=== PATIENT | male | born 1980 | race Caucasian/White ===

== ENCOUNTER 2023-12-29 23:24 | Emergency (ER) | payer OTHER, SELFPAY ==
[2023-12-29 23:25] VITALS: BP 148/86; PULSE 84; RESP 16; TEMP 36.4; O2SAT 100
[2023-12-30] MEDS: MICONAZOLE NITRATE 2% CREAM 30 GM TUBE 1 APPLIC TOPICAL (02:53)
[2023-12-30] MEDS: DOXYCYCLINE HYCLATE 100 MG TABLET PO (02:53)
--- NOTE | 2023-12-30 03:06 | ED.WOUNDLAC ---
HPI - Wound/Laceration General Chief Complaint: Extremity Injury, Lower Stated Complaint: wounds to arms/legs Time Seen by Provider: 12/30/23 02:15 History of Present Illness HPI narrative: patient has noticed ulcers to his left leg and arm that he states happened after he had burned himself. Also noticed a lesion to his left upper leg. Does use methamphetamine but does not inject. No systemic symptoms. The lesions are very itchy. He does also have swelling to his legs, was diagnosed with lymphedema a while back, he tripped elevated, this has been ongoing for years, he has had a negative CT scan for blood clots as well as a negative DVT ultrasound for blood clots. Related Data Allergies Allergy/AdvReac Type Severity Reaction Status Date / Time No Known Allergies Allergy Unverified 05/09/14 11:16 Exam Narrative: EXAMINATION OF ORGAN SYSTEMS/BODY AREAS: Constitutional: Vital signs per nursing GENERAL:[No acute distress, non-toxic appearing.] HEAD: Normal with no signs of head trauma. EYES: EOMI, conjunctiva normal ENT: Hearing grossly intact LUNGS: Nonlabored breathing. HEART: [Regular rate and rhythm] ABD: [Soft], [nontender to palpation] EXT: The swollen legs bilaterally with left slightly more than right which per patient is chronic. Normal range of motion. SKIN: Several ulcers to left upper leg, several ulcers to right upper arm NEURO: [Alert and oriented x 3. No gross focal sensory or strength deficits.] PSYCH: Normal affect Course Vital Signs Vital signs: Vital Signs Temperature 97.5 F L 12/29/23 23:25 Pulse Rate 84 12/29/23 23:25 Respiratory Rate 16 12/29/23 23:25 Blood Pressure 148/86 H 12/29/23 23:25 Pulse Oximetry 100 12/29/23 23:25 Oxygen Delivery Room Air 12/29/23 23:25 Temperature 97.5 F L 12/29/23 23:25 Pulse Rate 74 12/30/23 03:49 Respiratory Rate 16 12/30/23 03:49 Blood Pressure 142/68 H 12/30/23 03:49 Pulse Oximetry 100 12/30/23 03:49 Oxygen Delivery Room Air 12/29/23 23:25 MDM - Wound/Laceration MDM Narrative Medical decision making narrative: patient presents with multiple lesions on his left leg and right arm that are very itchy and slightly tender. Does admit to methamphetamine use but denies injecting it. Aspect possibly wounds/ ulcers from the burn +possible infection, given the itchiness and the ring-like appearance, I suspect possible tinea versus impetigo, with high risk for MRSA, I will put him on doxycycline and clotrimazole. Counseled to stop using meth. He has had the leg swelling for years and has had negative DVT ultrasound and CT for blood clot so I do not feel was necessary to a obtain further workup of that today. He has no systemic symptoms. I do feel he can be discharged with close outpatient follow-up and return precautions. Patient agreeable to this plan. Discharge Plan Discharge Clinical Impression: Skin lesions, Skin infection, Methamphetamine abuse, Lymphedema Patient Disposition: Home, Self-Care Condition: Stable Instructions: Antibiotic Form, Impetigo (ED), Acute Wounds (ED) Additional Instructions: Please take the medications as prescribed and follow up with a PCP. Please come back to the ER if your symptoms worsen here. Please stop using methamphetamines. Prescriptions: New doxycycline hyclate 100 mg capsule 100 mg PO Q12H 7 Days Qty: 14 0RF clotrimazole 1 % cream 1 applic topical BID 28 Days Qty: 45 0RF Follow-up/Referrals: Larry Tomas DO [Physician] - 2 Days PHYSICIAN,MAIL SERVICE COORDINATOR [Primary Care Provider] -
[2023-12-30 03:49] VITALS: BP 142/68; PULSE 74; RESP 16; O2SAT 100
== END 2023-12-30 03:49 | disposition home or self-care (01) ==
LOC: ANHED 12-30 02:48
PROVIDERS: Emergency Provider Emergency Medicine
DX: L98.9 Disorder of the skin and subcutaneous tissue, unspecified (principal); L08.9 Local infection of the skin and subcutaneous tissue, unspecified; F15.10 Other stimulant abuse, uncomplicated; I89.0 Lymphedema, not elsewhere classified
CPT/HCPCS: 99283; A9270

== ENCOUNTER 2024-01-06 23:41 | Inpatient (IN) | payer OTHER, SELFPAY ==
--- NOTE | ~2024-01-06 | XR_ITS ---
AP and lateral views of the right tibia/fibula Clinical History: Infection, evaluate for soft tissue gas Findings: No acute fracture or dislocation is seen. Osseous alignment is anatomic. Joint spaces are p reserved without significant erosive or degenerative change. There is diffuse subcutaneous soft tissu e edema. No soft tissue gas is evident. Impression: Diffuse soft tissue edema could reflect cellulitis. No soft tissue gas evident. No osseous or articular abnormality. Reviewed, dictated and finalized at location . Impression: Diffuse soft tissue edema could reflect cellulitis. No soft tissue gas evident. No osseous or articular abnormality.
--- NOTE | ~2024-01-06 | CT_ITS ---
EXAMINATION: CT tibia/fibula RT w con DATE: 01/07/2024 14:42 INDICATION: Right lower leg cellulitis. TECHNIQUE: Computed tomography (CT) of the right lower limb was performed with 100 mL Omnipaque 350 i ntravenous contrast. Automated exposure control and iterative reconstruction technique were employed. The dose-length product was 1397.43 mGy-cm. COMPARISON: Right tibia and fibula radiographs 01/07/2024 FINDINGS: Alignment is normal. Fracture. There is mild knee joint osteoarthritis. There is mild polya rticular osteoarthritis in the foot. No knee joint effusion. There is widespread subcutaneous edema. IMPRESSION: 1. Widespread subcutaneous edema. No abscess or osteomyelitis. Reviewed, dictated and finalized at location A.
[2024-01-06 23:46] VITALS: BP 131/77; PULSE 100; RESP 20; TEMP 36.9; O2SAT 100
--- NOTE | 2024-01-07 01:17 | ED.EXTPRO ---
HPI - Extremity Problem General Chief complaint: Extremity Problem,Nontraumatic Stated complaint: r leg pain Time Seen by Provider: 01/07/24 01:16 Source: patient Mode of arrival: EMS Limitations: no limitations History of Present Illness HPI Narrative: This is a 43-year-old male who presents to the ED for chief complaint of right lower leg pain patient reports that he was here last week for his left leg diagnosed with impetigo and cellulitis in the context of smoking meth. He states that he does not use any IVs for injection of meth and stopped using meth after antibiotics were prescribed last week. States that he took 1 dose of his clindamycin and stop taking it altogether due to diarrhea. A few days ago his right leg started to hurt more. Reports it is now appearing more swollen, red and warm. Denies any other medical condition or regular medications that he takes. Eyes any other substance use. Related Data Allergies Allergy/AdvReac Type Severity Reaction Status Date / Time No Known Allergies Allergy Unverified 05/09/14 11:16 Review of Systems Review of Systems: All systems as dictated in HPI Exam Narrative: GENERAL: Well-appearing, well-nourished, and in no acute distress. HEAD: Normocephalic, atraumatic. EYES: PERRLA and EOMI. ENT: Nares clear, no rhinorrhea or epistaxis. Mucous membranes moist. Oropharynx without tonsillar hypertrophy exudate or other lesions. NECK: Supple. No adenopathy or masses. CHEST: No respiratory distress. Clear to auscultation. No wheezes rales or rhonchi HEART: Regular rate and rhythm. No murmur heard. Normal peripheral pulses. ABDOMEN: Soft, nontender, nondistended, normal active bowel sounds. MSK: Bilateral lower extremity edema noted. RLE: Right lower extremity with pitting edema up to the level of the knee. Right lower extremity tender to the dorsum of the foot and to the calf. There is significant warmth, redness throughout the right lower extremity. LLE: There is chronic lymphedema appearing edema to the left lower extremity. There are several crusted erythematous raised lesions to the left proximal thigh measuring from mara sized to half dollar size. SKIN: Rash noted to the right extremity lower extremity. No petechia or purpura. No crepitus to the skin. NEURO: Alert and oriented x4. No focal deficits. PSYCH: Normal mood and affect. Course Vital Signs Vital signs: Vital Signs Temperature 98.5 F 01/06/24 23:46 Pulse Rate 100 01/06/24 23:46 Respiratory Rate 20 01/06/24 23:46 Blood Pressure 131/77 01/06/24 23:46 Pulse Oximetry 100 01/06/24 23:46 Oxygen Delivery Room Air 01/06/24 23:46 Temperature 98.5 F 01/06/24 23:46 Pulse Rate 92 01/07/24 03:17 Respiratory Rate 15 01/07/24 03:17 Blood Pressure 122/60 01/07/24 03:17 Pulse Oximetry 100 01/07/24 03:17 Oxygen Delivery Room Air 01/06/24 23:46 MDM - Extremity (Nontraumatic) MDM Narrative Medical decision making narrative: This is a 43-year-old male who presents to the ED with chief complaint of right lower extremity swelling, pain erythema and warmth over the past couple days. Diagnosed with impetigo last week on the left-sided not take his antibiotics. Vitals are normal. Exam remarkable for the above with significant swelling, erythema and warmth of the lower extremity. Induration noted but no crepitus or lesions concerning for nec fasc. Lab work shows elevated white count of 16.1 and CRP of 29.8. CMP are unremarkable. Tib-fib x-ray shows no gas tracking or it bone erosion on preliminary read. Patient was started on fluids, cefepime and vancomycin in the setting of past drug abuse. Discussed the case with Dr. Mohan, who agrees with plan for IV antibiotics and admission to the hospital. Discussed the plan of admission with patient and he is understanding and agreeable. He will be admitted in stable condition. Lab Data 01/07/24 02:12 01/07/24 02:
[2024-01-07 02:18] LABS: Basophils Absolute Auto 0.1 K/mm3 (0.0-0.1); Basophils Percent Auto 0.7 % (0.2-1.2); Eosinophils Absolute Auto 0.3 K/mm3 (0-0.3); Eosinophils Percent Auto 1.6 % (0-4.4); Hematocrit 41.1 % (42.0-52.0); Immature Granulocyte Absolute 0.75 K/mm3 (0.00-0.031); Immature Granulocyte Percent A 4.7 % (0-0.5); Lymphocytes Absolute Auto 1.66 K/mm3 (0.9-3.2); Lymphocytes Percent Auto 10.3 % (18.3-44.2); Mean Corpuscular HGB Conc 34.1 g/dl (32-36); Mean Corpuscular Hemoglobin 30.8 pg (26-34); Mean Corpuscular Volume 90.5 fl (80-100); Mean Platelet Volume 9.3 fl (7.4-10.4); Monocytes Absolute Auto 1.5 K/mm3 (0.1-0.6); Monocytes Percent Auto 9.2 % (2.6-8.5); Neutrophils Absolute Auto 11.9 K/mm3 (1.3-6.7); Neutrophils Percent Auto 73.5 % (45.5-73.1); Platelet Count Result 306 k/mm3 (150-375); Red Blood Count 4.54 M/mm3 (4.6-6.20); Red Cell Distribution Width 13.8 % (11.5-14.5); White Blood Count 16.1 K/mm3 (4.5-10.0)
[2024-01-07] MEDS: SODIUM CHLORIDE 0.9% IV 1,000 ML 999 ML IV CONT ×2 (02:21→13:13)
[2024-01-07] MEDS: MORPHINE SULFATE (*CRX) 4 MG/ML INJ IV PUSH ×3 (02:22→14:53)
[2024-01-07] MEDS: ONDANSETRON INJ 4 MG/2 ML VIAL IV PUSH (02:22)
[2024-01-07] MEDS: CEFEPIME 2 GM/NS 50 ML 2 GM/50 ML BAG IVPB ×2 (02:25→13:47)
[2024-01-07 02:31] LABS: Alanine Aminotransferase 26 U/L (6-50); Albumin Level 3.7 g/dL (3.5-5.1); Alkaline Phosphatase 112 U/L (38-126); Anion Gap 8 mmol/L (4-12); Aspartate Amino Transferase 22 U/L (17-59); Bilirubin,Total 0.8 mg/dL (0.2-1.3); Blood Urea Nitrogen 13 mg/dL (9-20); Carbon Dioxide 30 mmol/L (22-30); Chloride 96 mmol/L (98-107); Estimated CRCL calculation 133 ml/min; Estimated Glomerular Filt Rate > 60; Glucose 107 mg/dL (65-110); Lactic Acid Reflex 1.4 mmol/L (0.7-2.0); Sodium 134 mmol/L (137-145)
[2024-01-07 03:07] LABS: CRP 29.8 mg/dL (<1.0)
[2024-01-07 03:17] VITALS: BP 122/60; PULSE 92; RESP 15; O2SAT 100
[2024-01-07] MEDS: VANCOMYCIN 1,500 MG/NS 500 ML 1,500 MG/500 ML BAG 250 MG IVPB ×2 (03:17→15:42)
[2024-01-07 04:59] VITALS: BMI 30.3
--- NOTE | 2024-01-07 05:03 | ADMGEN ---
This patient, Paul Chapa, was admitted to 3 [facility] Surg Room 320-01. Patient/family oriented to hospital policies and general routines including ID bracelet, bed and alarms, visiting hours, pain management, procedures, bathroom and other care routines, personal items, smoking policy, room service/diet, and visiting hours. Information on how to activate the Rapid Response Team has been discussed. Patient/Family are encouraged to report perceived risks to care and to ask questions if they do not understand what they are told or what they should do.
[2024-01-07 05:09] VITALS: PULSE 96; RESP 18; TEMP 37.3; O2SAT 98; BMI 30.3
[2024-01-07] MEDS: SODIUM CHLORIDE 0.9% IV 1,000 ML 125 ML IV CONT ×2 (05:31→15:42)
--- NOTE | 2024-01-07 08:19 | PM.IMHP ---
H&P: HPI History of Present Illness Date/Time: 01/07/24 08:19 Chief Complaint: Wounds Narrative: Paul Chapa is a 43 year old man, hx obesity with 150 pound weight loss in the last 2 years, chronic lymphedema to left leg, 10 years of methamphetamine use, who presented to the ED for wounds. Denies injecting. Admitted for right leg cellulitis. Also has lesions to his left arm and leg, lesions itchy, reports present since about 12/25. He presented to the ED 12/29 and had left leg swelling at that time, as well as the lesions to his right upper leg and arm. Lesions are not painful but are itchy. He reports he previously weighed about 400 pounds but has lost about 150 pounds in the last 2 years since his divorce. Smokes methamphetamines, usually every other day but intends to quit. He has had chronic lymphedema to his left leg, generally resolved with elevation. He has stable living situation but notes that he stays at a workshop, so may not be a permanent solution. No concern for bug bites Noticed ulcers to his left leg and arm, lesions are itchy that he reports have been present for at least a week. Reports swelling to left leg improved with doxycycline, but was only able to take it for a day or two because he couldn't get to the medication due to pain/swelling that subsequently developed in his right leg. 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 Currently sexually active with 2 partners. No reported fevers at home. No dysuria or genital lesions. In the ER he was afebrile, tachycardic (98.5, HR 100, RR 20, BP 131/77, 100%RA). Subsequent low grad temp, 99.2. Labs showed a WBC 16.1, H&H 14/41.1, Plt 306. CRP 29.8. Creat 0.8. LFT?s normal, AST 22, ALT 26, Alk phos 112.? Blood cultures were sent. Tib/Fib x-ray no acute fracture. He reports redness and swelling to his righ leg is increasing overnight. Started on doxy and clotrimazole for ringlike appearance of wound, concern for fungal infection vs impetigo, risk for MRSA. Subsequently started on Cefepime and IV Vancomycin Review of Systems Review of Systems: No fevers, chills, nausea, vomiting, or diarrhea PMFSH Family History Family History Grandparent Breast cancer Grandparent Diabetes mellitus Father Lung cancer Myocardial infarct Social History Social History Smoking packs per day: 1 Smoking cigarettes per day: 20.0 Years smoked: 25 Smoking pack-years: 25.00 Smoking status: Current every day smoker Tobacco type: cigarettes Alcohol intake: never Substance use: current Substance use type: methamphetamine Last use: 12/27/2023 Do You Feel Safe in your Home?: Yes Lack of Transportation: YES Lack of Food: Never True Current Housing: I Have Housing Concerned About Future Housing: YES Difficulty Paying Gas/Electric Bills: YES Difficulty Paying for Meds: YES Currently Unemployed: YES Education: High School Diploma/GED Difficulty w/ Childcare or Family Care: No Spiritual care concerns: No Meds Home Medications and Allergies Home Medications Medication Instructions Recorded Confirmed Type No Home Medications 01/07/24 01/07/24 History Allergies Allergy/AdvReac Type Severity Reaction Status Date / Time No Known Allergies Allergy Verified 01/07/24 05:12 Vital Signs Vital Signs - 24 hr 01/06/24 23:46 01/07/24 03:17 01/07/24 05:09 Temperature 98.5 F 99.2 F Pulse Rate 100 92 96 Respiratory Rate 20 15 18 Blood Pressure 131/77 122/60 Pulse Oximetry 100 100 98 Oxygen Delivery Room Air H&P: Results Labs Labs: Short CBC 01/07/24 Range/Units 02:12 WBC 16.1 H (4.5-10.0) K/mm3 Hgb 14.0 (14.0-18.0) g/dL Hct 41.1 L (42.0-52.0) % Plt Count 306 (150-375) k/mm3 BMP 01/07/24 02:12 Sodium 134 L Potassium 4.0 Chloride 96 L Carbon Dioxide 30 BU
[2024-01-07 11:35] LABS: Add Urine Microscopic? NO; Appearance Urine Clear (Clear); Bilirubin Urine Negative (Negative); Blood Urine Negative (Negative); Color Urine Yellow (Yellow); Glucose Urine UA Negative (Negative); Ketones Urine Negative (Negative); Leukocyte Esterase Ur Negative LEU/UL (Negative); Nitrate Urine Negative (Negative); Protein Urine Negative (Negative); Specific Grav Ur 1.015 (1.001-1.035); pH Urine 6.5 (5.0-9.0)
[2024-01-07 11:49] LABS: Barbiturate Screen Urine Negative (Negative); Benzodiazepines Screen Urine Negative (Negative)
[2024-01-07 11:51] LABS: Cannabinoid Screen Urine Negative (Negative); Cocaine Screen Urine Negative (Negative); Methadone Screen Urine Negative (Negative); Opiate Screen Urine Positive (Negative); Phencyclidine Screen Urine Negative (Negative)
[2024-01-07 12:13] LABS: Amphetamine Screen Urine Positive (Negative)
[2024-01-07 12:21] LABS: Basophils Absolute Auto 0.1 K/mm3 (0.0-0.1); Basophils Percent Auto 0.8 % (0.2-1.2); Eosinophils Absolute Auto 0.2 K/mm3 (0-0.3); Eosinophils Percent Auto 1.7 % (0-4.4); Hematocrit 37.7 % (42.0-52.0); Hemoglobin 12.6 g/dL (14.0-18.0); Immature Granulocyte Absolute 0.68 K/mm3 (0.00-0.031); Immature Granulocyte Percent A 4.8 % (0-0.5); Lymphocytes Absolute Auto 1.59 K/mm3 (0.9-3.2); Lymphocytes Percent Auto 11.2 % (18.3-44.2); Mean Corpuscular HGB Conc 33.4 g/dl (32-36); Mean Corpuscular Hemoglobin 30.5 pg (26-34); Mean Corpuscular Volume 91.3 fl (80-100); Mean Platelet Volume 9.1 fl (7.4-10.4); Monocytes Absolute Auto 1.1 K/mm3 (0.1-0.6); Monocytes Percent Auto 7.9 % (2.6-8.5); Neutrophils Absolute Auto 10.5 K/mm3 (1.3-6.7); Neutrophils Percent Auto 73.6 % (45.5-73.1); Platelet Count Result 290 k/mm3 (150-375); Red Blood Count 4.13 M/mm3 (4.6-6.20); Red Cell Distribution Width 13.9 % (11.5-14.5); White Blood Count 14.3 K/mm3 (4.5-10.0)
[2024-01-07 12:32] LABS: Anion Gap 7 mmol/L (4-12); Blood Urea Nitrogen 14 mg/dL (9-20); Calcium 8.3 mg/dL (8.4-10.2); Carbon Dioxide 28 mmol/L (22-30); Chloride 98 mmol/L (98-107); Estimated CRCL calculation 168 ml/min; Estimated Glomerular Filt Rate > 60; Glucose 137 mg/dL (65-110); Lactic Acid Reflex 1.4 mmol/L (0.7-2.0); Sodium 133 mmol/L (137-145)
[2024-01-07 13:05] VITALS: BMI 30.3
[2024-01-07 13:11] LABS: HIV 1/2 Ab P24 Ag Result Negative (Negative)
[2024-01-07 14:00] VITALS: BP 112/62; PULSE 87; RESP 18; TEMP 37; O2SAT 99
--- NOTE | 2024-01-07 14:15 | PC.NURSE ---
pt taken down to CT
[2024-01-07 14:24] LABS: Rapid Plasma Reagin Non-Reactive (NonReactive)
--- NOTE | 2024-01-07 14:45 | PC.NURSE ---
pt returned from CT
[2024-01-07 15:21] LABS: Chlamydia trachomatis NOT DETECTED (NOT DETECTE); Neisseria gonorrhoeae PCR NOT DETECTED (NOT DETECTE)
[2024-01-07] MEDS: SENNA/DOCUSATE SODIUM TABLET 1 TAB PO (17:14)
[2024-01-07] MEDS: MICONAZOLE NITRATE 2% CREAM 30 GM TUBE 1 APPLIC TOPICAL (21:37)
[2024-01-07 22:00] VITALS: BP 126/61; PULSE 93; RESP 18; TEMP 36.9; O2SAT 96
--- NOTE | 2024-01-08 | ECHO_ITS ---
Patient Info Name: Paul Chapa Age: 43 years : 1980 Gender: Male Ht: 78 in Wt: 260 lbs BSA: 2.57 m2 HR: 96 bpm BP: 115 / 70 mmHg Heart Rhythm: Sinus Rhythm Technical Quality: Good Exam Date: 01/08/2024 2:14 PM Exam Location: Echo Lab Patient Status: Inpatient Admit Date: 01/07/2024 Staff Ordering Physician: Pina Echavarria APRN Irish Moss Bleacher: Liya Rivas RDCS Attending Provider: Pina Echavarria APRN Exam Type: CA echo doppler color flow Study Info Indications - evaluate endocarditis Complete two-dimensional, color flow and Doppler transthoracic echocardiogram is performed. Summary 1. Complete two-dimensional, color flow and Doppler transthoracic echocardiogram is performed. 2. Left ventricular systolic function is normal, estimated at 55-60%. 3. The left ventricular diastolic function is normal. 4. Aortic valve appears to be thickened. Cannot rule out endocarditis. If there is a clinical suspicion for endocarditis, transesophageal echocardiogram is recommended. Left Ventricle Left ventricular chamber dimension is normal. Left ventricular systolic function is normal, estimated at 55-60%. There is no increased left ventricular wall thickness. Left ventricular septal wall motion is normal. The left ventricular diastolic function is normal. Right Ventricle Right ventricular chamber dimension is normal. Right ventricular systolic function is normal. Left Atria Left atrial chamber dimension is normal. Right Atria Right atrial chamber dimension is normal. Atrial Septum Intact interatrial septum visualized by color flow imaging. Aortic Valve The aortic valve is probable trileaflet. There is severe aortic valve sclerosis. There is no aortic valve stenosis. There is no aortic valve regurgitation. Pulmonic Valve The pulmonic valve is normal. There is no pulmonic valve stenosis. There is no pulmonic regurgitation. Mitral Valve The mitral valve has normal leaflets. There is no mitral valve stenosis. There is no mitral valve regurgitation. Tricuspid Valve The tricuspid valve leaflets are normal. There is no significant tricuspid valve stenosis. There is no tricuspid valve regurgitation. No pulmonary hypertension, estimated pulmonary arterial systolic pressure is 17 mmHg. Pericardium/Pleural The pericardium appears normal. There is no pericardial effusion. Inferior Vena Cava Normal inferior vena cava with >50% collapse upon inspiration consistent with normal right atrial pressure, 5 mmHg. Aorta The aortic root size at the sinus of Valsalva is normal. The prox ascending aorta size is normal. Left Ventricular Outflow Tract Name Value Normal LVOT 2D LVOT Diameter 2.1 cm LVOT Doppler LVOT Peak Gradient 4 mmHg LVOT Mean Gradient 2 mmHg LVOT VTI 16 cm LVOT VTI/AV VTI Ratio 0.7 LVOT Stroke Volume 56 ml LVOT CO 4.7 l/min LVOT CI 1.8 l/min/m2 Mitral Valve Name
[2024-01-08] MEDS: CEFEPIME 2 GM/NS 50 ML 2 GM/50 ML BAG IVPB (01:15)
[2024-01-08] MEDS: VANCOMYCIN 1,500 MG/NS 500 ML 1,500 MG/500 ML BAG 250 MG IVPB ×2 (03:04→16:20)
[2024-01-08 05:42] VITALS: BP 115/70; PULSE 96; RESP 18; TEMP 36.8; O2SAT 96
[2024-01-08 06:42] LABS: Estimated CRCL calculation 149 ml/min; Estimated Glomerular Filt Rate > 60
--- NOTE | 2024-01-08 08:14 | PM.IMPN ---
Progress Note: A&P Assessment and Plan (1) Cellulitis: Qualifiers: Laterality: right Site of cellulitis: extremity Site of cellulitis of extremity: lower extremity Qualified Code(s): L03.115 - Cellulitis of right lower limb Code(s): L03.90 - Cellulitis, unspecified Status: Acute Assessment and Plan: Right leg cellulitis with significant erythema and edema. Slightly improved overnight. No fevers. Repeating labs this afternoon On admission WBC 16.1, CRP 29.8 --CT right leg generalized edema without abscess --Change Cefepime to Ceftriaxone, continue IV Vanc, follow vanc trough. If has more clear improvement tomorrow could continue linezolid or bactrim --Follow labs: CBC, lactate, BMP --Staph screen for MRSA --01/06 2:12am, blood cultures negative to date, follow final results 01/06 CT Tib/Fib 1. Widespread subcutaneous edema. No abscess or osteomyelitis. (2) Rash: Code(s): R21 - Rash and other nonspecific skin eruption Status: Acute Assessment and Plan: Left leg rash, circular, raised, crusted. He reports they were draining previously and that has resolved so may have had multiple abscess, which is concerning for bacteremia. RPR & HIV were negative --Topical miconazole but less likely fungal --Treatment of cellulitis as noted --Topical chlorhexadine soap to clean wounds --TTE to screen for endocarditis (3) Weight loss: Code(s): R63.4 - Abnormal weight loss Status: Acute Assessment and Plan: Patient reports 150 pound weight loss in the last 2 years. 10 years of methamphetamine use --HIV, RPR, Urine for G/C negative --Methamphetamine use exterminator, contributing to some extent --Creel Selector consult, appreciate recommendations, added ensure Time Spent With Patient Time: 38 minutes Subjective Date/time seen: 01/08/24 08:14 Interval history: Slow improvement to right leg cellulitis, elevated leg overnight. Reports shaking chills prior to ED visit last week but had mostly resolved prior to this admission. Review of Systems Review of Systems: No fevers, chills, nausea, vomiting, or diarrhea Exam Narrative: General - Awake and alert. No acute distress Eyes - PERRLA, EOM intact ENT - No thrush, No erythema Neck - No noticeable or palpable swelling Lymph Nodes - No lymphadenopathy Cardiovascular - RRR no m/r/g, no JVD Lungs: Clear to auscultation, No wheezing, use of accessory muscles, no crackles or wheezes. Skin - Skin warm and dry, no wounds or rashes Abdomen - Normal bowel sounds, abdomen soft and nontender Extremities - Erythema and edema diffusely to right leg below the knee, no cyanosis or clubbing, TTP Round crusted lesions to upper thigh--multiple, also one to left wrist and lower leg, not draining Musculoskeletal - 5/5 strength, normal range of motion, no swollen or erythematous joints. Neurological ? Alert and oriented x 3, CN 2-12 grossly intact. Psych: Normal mood and affect Objective Data Vital Signs Vital Signs: Vital Signs - 24 hr 01/07/24 08:30 01/07/24 14:00 01/07/24 22:00 Temperature 98.6 F 98.5 F Pulse Rate 87 93 Respiratory Rate 18 18 Blood Pressure 112/62 126/61 Pulse Oximetry 99 96 Oxygen Delivery Room Air 01/08/24 05:42 Temperature 98.2 F Pulse Rate 96 Respiratory Rate 18 Blood Pressure 115/70 Pulse Oximetry 96 Oxygen Delivery Intake/Output Intake/Output: Intake & Output 01/05/24 01/06/24 01/07/24 01/08/24 23:59 23:59 23:59 23:59 Intake Total 6100 1100 Output Total 3000 4355 Balance 3100 -3255 Meds/Results Medications: Active Medications Generic Name Dose Route Start Last Admin Trade Name Freq PRN Reason Stop Dose Admin Acetaminophen 650 mg 01/07/24 03:43 Acetaminophen 325 Mg Tablet PO Q4H PRN Mild Pain (1-3) or Fever Hydrocodone Bitart/Acetaminophen 1 tab 01/07/24 03:43 Hydrocodone/Acetaminophen (*Crx) 5-325 Mg Tablet PO Q4H NM
[2024-01-08] MEDS: ENOXAPARIN 40 MG/0.4 ML SYRINGE SUB-Q (08:53)
[2024-01-08] MEDS: NICOTINE (*PBKC) 21 MG PATCH 1 PATCH TRANSDERM (08:55)
[2024-01-08] MEDS: MORPHINE SULFATE (*CRX) 4 MG/ML INJ IV PUSH (09:02)
[2024-01-08] MEDS: cefTRIAXone 2 GM/NS 100 ML 2 GM/100 ML BAG IVPB (12:45)
[2024-01-08] MEDS: SODIUM CHLORIDE 0.9% IV 1,000 ML 125 ML IV CONT (12:45)
[2024-01-08] MEDS: MICONAZOLE NITRATE 2% CREAM 30 GM TUBE 1 APPLIC TOPICAL ×2 (13:56→21:25)
[2024-01-08 14:00] VITALS: BP 122/64; PULSE 83; RESP 20; TEMP 36; O2SAT 97
[2024-01-08] MEDS: polyethylene glycoL 3350 17 GM POWD.PACK PO (14:03)
[2024-01-08] MEDS: CHLORHEXIDINE GLUCONATE 4% SOL 120 ML BTL 1 APPLIC TOPICAL (14:03)
[2024-01-08 14:04] LABS: MRSA (PCR) NOT DETECTED (NOT DETECTE)
[2024-01-08 14:33] LABS: Basophils Absolute Auto 0.1 K/mm3 (0.0-0.1); Eosinophils Absolute Auto 0.4 K/mm3 (0-0.3); Eosinophils Percent Auto 2.7 % (0-4.4); Hematocrit 38.6 % (42.0-52.0); Hemoglobin 13.2 g/dL (14.0-18.0); Immature Granulocyte Absolute 0.79 K/mm3 (0.00-0.031); Immature Granulocyte Percent A 5.6 % (0-0.5); Lymphocytes Absolute Auto 1.69 K/mm3 (0.9-3.2); Mean Corpuscular HGB Conc 34.2 g/dl (32-36); Mean Corpuscular Hemoglobin 30.9 pg (26-34); Mean Corpuscular Volume 90.4 fl (80-100); Monocytes Absolute Auto 0.9 K/mm3 (0.1-0.6); Monocytes Percent Auto 6.2 % (2.6-8.5); Neutrophils Absolute Auto 10.3 K/mm3 (1.3-6.7); Neutrophils Percent Auto 72.5 % (45.5-73.1); Platelet Count Result 323 k/mm3 (150-375); Red Blood Count 4.27 M/mm3 (4.6-6.20); Red Cell Distribution Width 13.5 % (11.5-14.5); White Blood Count 14.1 K/mm3 (4.5-10.0)
[2024-01-08 14:53] LABS: Erythrocyte Sedimentation Rate 133 mm/hr (0-20)
[2024-01-08] MEDS: SENNA/DOCUSATE SODIUM TABLET 1 TAB PO (16:26)
[2024-01-08 20:31] VITALS: BP 119/62; PULSE 92; RESP 20; TEMP 36.6; O2SAT 99
[2024-01-09] MEDS: SODIUM CHLORIDE 0.9% IV 1,000 ML 125 ML IV CONT ×2 (00:23→17:41)
[2024-01-09] MEDS: VANCOMYCIN 1,500 MG/NS 500 ML 1,500 MG/500 ML BAG 250 MG IVPB ×3 (00:50→17:41)
[2024-01-09 05:51] VITALS: BP 116/72; PULSE 83; RESP 20; TEMP 36.4; O2SAT 96
[2024-01-09 05:51] LABS: Estimated CRCL calculation 168 ml/min; Estimated Glomerular Filt Rate > 60
--- NOTE | 2024-01-09 07:54 | PM.IMPN ---
Progress Note: A&P Assessment and Plan (1) Cellulitis: Qualifiers: Laterality: right Site of cellulitis: extremity Site of cellulitis of extremity: lower extremity Qualified Code(s): L03.115 - Cellulitis of right lower limb Code(s): L03.90 - Cellulitis, unspecified Status: Acute Assessment and Plan: Right leg cellulitis with significant erythema and edema. Slightly improved overnight. No fevers. Repeating labs this afternoon On admission WBC 16.1, CRP 29.8 WBC improving 16.1>14.3>14.1 01/06 CT Tib/Fib 1. Widespread subcutaneous edema. No abscess or osteomyelitis. --Changed Cefepime to Ceftriaxone, continue IV Vanc. Continued slow improvement. Vanc trough was low, 6. Pharmacy increased dose. Staph screen for MRSA negative, however has been slow to improve and Vancomycin dose subtherapeutic so consider discharging with Bactrim 2 DS BID x 7 days if continues to improve tomorrow --01/06 2:12am, blood cultures negative to date, follow final results --Follow labs: CBC, BMP --Patient will need a PCP for follow up (2) Rash: Code(s): R21 - Rash and other nonspecific skin eruption Status: Acute Assessment and Plan: Left leg rash, circular, raised, crusted. He reports they were draining previously and that has resolved so may have had multiple abscesses, which is concerning for bacteremia. RPR & HIV were negative --Topical miconazole but less likely fungal --Treatment of cellulitis as noted --Topical chlorhexadine soap to clean wounds, improving --TTE showed a thickened aortic valve, cannot rule out endocarditis. --If blood cultures become positive, would need a IRENE, but no growth to date (3) Weight loss: Code(s): R63.4 - Abnormal weight loss Status: Acute Assessment and Plan: Patient reports 150 pound weight loss in the last 2 years. 10 years of methamphetamine use --HIV, RPR, Urine for G/C negative --Methamphetamine use assisted, contributing to some extent --Railway Switch Operator consult, appreciate recommendations, added ensure (4) Decreased mobility: Code(s): R26.89 - Other abnormalities of gait and mobility Status: Acute Assessment and Plan: Due to right leg pain and swelling --PT eval --Miralax, senna prn for bowel regimen --Continue Lovenox 40 for DVT prophylaxis (5) Polysubstance abuse: Code(s): F19.10 - Other psychoactive substance abuse, uncomplicated Status: Acute Assessment and Plan: Methamphetamine use, smokes, generally every other day. Also smokes 1 PPD --Nicotine patch 21mg daily --Patient motivated to quit using methamphetamines Time Spent With Patient Time: 57 minutes Subjective Date/time seen: 01/09/24 07:54 Interval history: Slow improvement to right leg cellulitis, elevated leg overnight. Also improvement in lesions to left leg. Vanc trough was low (6) so may be MRSA. Reports shaking chills prior to ED visit last week but had mostly resolved prior to this admission. Review of Systems Review of Systems: No fevers, chills, nausea, vomiting, or diarrhea Exam Narrative: General - Awake and alert. No acute distress Eyes - PERRLA, EOM intact ENT - No thrush, No erythema Neck - No noticeable or palpable swelling Lymph Nodes - No lymphadenopathy Cardiovascular - RRR no m/r/g, no JVD Lungs: Clear to auscultation, No wheezing, use of accessory muscles, no crackles or wheezes. Skin - Skin warm and dry, no wounds or rashes Abdomen - Normal bowel sounds, abdomen soft and nontender Extremities - Erythema and edema diffusely to right leg below the knee, no cyanosis or clubbing, TTP, improving Round crusted lesions to upper thigh--multiple, also one to left wrist and lower leg, not draining, less crusted than 10/4 Musculoskeletal - 5/5 strength, decreased range of motion to right lower leg/ankle due to pain Neurological ? Alert and oriented x 3, CN 2-12 grossly intact. Psych: Normal mood and a
[2024-01-09] MEDS: SENNA/DOCUSATE SODIUM TABLET 1 TAB PO (08:32)
[2024-01-09] MEDS: polyethylene glycoL 3350 17 GM POWD.PACK PO (08:32)
[2024-01-09] MEDS: CHLORHEXIDINE GLUCONATE 4% SOL 120 ML BTL 1 APPLIC TOPICAL (08:32)
[2024-01-09] MEDS: MICONAZOLE NITRATE 2% CREAM 30 GM TUBE 1 APPLIC TOPICAL ×2 (08:35→21:17)
[2024-01-09] MEDS: ENOXAPARIN 40 MG/0.4 ML SYRINGE SUB-Q (08:35)
[2024-01-09] MEDS: NICOTINE (*PBKC) 21 MG PATCH 1 PATCH TRANSDERM (08:35)
[2024-01-09] MEDS: cefTRIAXone 2 GM/NS 100 ML 2 GM/100 ML BAG IVPB (12:15)
[2024-01-09 14:00] VITALS: BP 132/72; PULSE 75; RESP 20; TEMP 35.7; O2SAT 100
[2024-01-09 14:47] LABS: Alanine Aminotransferase 69 U/L (6-50); Albumin Level 3.9 g/dL (3.5-5.1); Alkaline Phosphatase 140 U/L (38-126); Anion Gap 8 mmol/L (4-12); Aspartate Amino Transferase 50 U/L (17-59); Bilirubin,Total 0.3 mg/dL (0.2-1.3); Blood Urea Nitrogen 17 mg/dL (9-20); Calcium 8.9 mg/dL (8.4-10.2); Carbon Dioxide 32 mmol/L (22-30); Chloride 99 mmol/L (98-107); Estimated CRCL calculation 168 ml/min; Estimated Glomerular Filt Rate > 60; Glucose 111 mg/dL (65-110); Potassium 3.9 mmol/L (3.4-5.0); Sodium 139 mmol/L (137-145)
[2024-01-09 14:56] LABS: Vancomycin Trough 12.9 ug/mL (10.0-20.0)
[2024-01-09 20:58] VITALS: BP 122/80; PULSE 85; RESP 16; TEMP 36.7; O2SAT 100
[2024-01-10] MEDS: VANCOMYCIN 1,500 MG/NS 500 ML 1,500 MG/500 ML BAG 250 MG IVPB ×4 (00:46→23:09)
[2024-01-10] MEDS: SODIUM CHLORIDE 0.9% IV 1,000 ML 125 ML IV CONT ×2 (02:30→15:08)
[2024-01-10 05:36] VITALS: BP 109/63; PULSE 83; RESP 16; TEMP 36.8; O2SAT 100
[2024-01-10 07:03] LABS: Basophils Absolute Auto 0.2 K/mm3 (0.0-0.1); Basophils Percent Auto 1.2 % (0.2-1.2); Eosinophils Absolute Auto 0.6 K/mm3 (0-0.3); Eosinophils Percent Auto 3.8 % (0-4.4); Hematocrit 42.1 % (42.0-52.0); Immature Granulocyte Absolute 1.36 K/mm3 (0.00-0.031); Immature Granulocyte Percent A 8.7 % (0-0.5); Lymphocytes Absolute Auto 2.48 K/mm3 (0.9-3.2); Lymphocytes Percent Auto 15.8 % (18.3-44.2); Mean Corpuscular HGB Conc 33.3 g/dl (32-36); Mean Corpuscular Hemoglobin 30.2 pg (26-34); Mean Corpuscular Volume 90.9 fl (80-100); Monocytes Absolute Auto 0.9 K/mm3 (0.1-0.6); Monocytes Percent Auto 5.9 % (2.6-8.5); Neutrophils Absolute Auto 10.1 K/mm3 (1.3-6.7); Neutrophils Percent Auto 64.6 % (45.5-73.1); Platelet Count Result 380 k/mm3 (150-375); Red Blood Count 4.63 M/mm3 (4.6-6.20); Red Cell Distribution Width 13.2 % (11.5-14.5); White Blood Count 15.7 K/mm3 (4.5-10.0)
[2024-01-10 07:18] LABS: Alanine Aminotransferase 68 U/L (6-50); Albumin Level 3.4 g/dL (3.5-5.1); Alkaline Phosphatase 116 U/L (38-126); Anion Gap 5 mmol/L (4-12); Aspartate Amino Transferase 45 U/L (17-59); Bilirubin,Total 0.4 mg/dL (0.2-1.3); Blood Urea Nitrogen 14 mg/dL (9-20); Carbon Dioxide 34 mmol/L (22-30); Chloride 99 mmol/L (98-107); Estimated CRCL calculation 149 ml/min; Estimated Glomerular Filt Rate > 60; Glucose 109 mg/dL (65-110); Potassium 4.6 mmol/L (3.4-5.0); Sodium 138 mmol/L (137-145)
[2024-01-10] MEDS: SENNA/DOCUSATE SODIUM TABLET 1 TAB PO ×2 (08:47→17:33)
[2024-01-10] MEDS: CHLORHEXIDINE GLUCONATE 4% SOL 120 ML BTL 1 APPLIC TOPICAL (08:49)
[2024-01-10] MEDS: MICONAZOLE NITRATE 2% CREAM 30 GM TUBE 1 APPLIC TOPICAL ×2 (08:51→21:14)
[2024-01-10] MEDS: ENOXAPARIN 40 MG/0.4 ML SYRINGE SUB-Q (08:51)
[2024-01-10] MEDS: HYDROcodone/acetaminophen (*CRX) 5-325 MG TABLET 1 TAB PO ×3 (08:57→23:10)
--- NOTE | 2024-01-10 09:08 | PM.IMPN ---
Progress Note: A&P Assessment and Plan (1) Cellulitis: Qualifiers: Laterality: right Site of cellulitis: extremity Site of cellulitis of extremity: lower extremity Qualified Code(s): L03.115 - Cellulitis of right lower limb Code(s): L03.90 - Cellulitis, unspecified Status: Acute Assessment and Plan: Right leg cellulitis with significant erythema and edema. Slightly improved overnight. No fevers. Repeating labs this afternoon On admission WBC 16.1, CRP 29.8 WBC improving 16.1>14.3>14.1, increased on am labs to 15.7 01/06 XR tib/fib: Diffuse soft tissue edema could reflect cellulitis. No soft tissue gas evident.No osseous or articular abnormality. 01/06 CT Tib/Fib: 1. Widespread subcutaneous edema. No abscess or osteomyelitis. --Changed Cefepime to Ceftriaxone, continue IV Vanc. Continued slow improvement. Vanc trough was low, 6. Pharmacy increased dose. Staph screen for MRSA negative, however has been slow to improve and Vancomycin dose subtherapeutic so consider discharging with Bactrim 2 DS BID x 7 days if continues to improve tomorrow --01/06 2:12am, blood cultures negative to date, follow final results --Follow labs: CBC, BMP --Patient will need a PCP for follow up Discussed patient with ID and given that he had a slight increase in his WBC and blood cultures have not yet resulted will keep him on IV antibiotics at this time. (2) Rash: Code(s): R21 - Rash and other nonspecific skin eruption Status: Acute Assessment and Plan: Left leg rash, circular, raised, crusted. He reports they were draining previously and that has resolved so may have had multiple abscesses, which is concerning for bacteremia. RPR & HIV were negative --Topical miconazole but less likely fungal --Treatment of cellulitis as noted --Topical chlorhexadine soap to clean wounds, improving --TTE showed a thickened aortic valve, cannot rule out endocarditis. --If blood cultures become positive, would need a IRENE, but no growth to date (3) Weight loss: Code(s): R63.4 - Abnormal weight loss Status: Acute Assessment and Plan: Patient reports 150 pound weight loss in the last 2 years. 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 (5) Polysubstance abuse: Code(s): F19.10 - Other psychoactive substance abuse, uncomplicated Status: Acute Assessment and Plan: Methamphetamine use, smokes, generally every other day. Also smokes 1 PPD --Nicotine patch 21mg daily --Patient motivated to quit using methamphetamines Time Spent With Patient Time with patient: 25 - 35 minutes Subjective Date/time seen: 01/10/24 09:08 Interval history: 43 year old man, hx obesity with 150 pound weight loss in the last 2 years, chronic lymphedema to left leg, 10 years of methamphetamine use, who presented to the ED for wounds. Denies injecting. Admitted for right leg cellulitis. Also has lesions to his left arm and leg, lesions itchy, reports present since about 12/25. Patient is pleasant lying comfortably in bed. He continues to endorse slight right leg pain, but notes that this has improved throughout admission. He states he is ambulating better at this time. He denies chest pain, shortness a breath, nausea/ vomiting, and abdominal pain. Discussed patient with ID and given that he had a slight increase in his WBC and blood cultures have not yet resulted will keep him on IV antibiotics at this time. Review of Systems Revie
[2024-01-10] MEDS: cefTRIAXone 2 GM/NS 100 ML 2 GM/100 ML BAG IVPB (11:08)
[2024-01-10 14:00] VITALS: BP 135/84; PULSE 65; RESP 18; TEMP 35.6; O2SAT 98
[2024-01-10 15:41] LABS: Vancomycin Trough 13.4 ug/mL (10.0-20.0)
[2024-01-10 20:44] VITALS: BP 110/62; PULSE 76; RESP 16; TEMP 36.8; O2SAT 98
[2024-01-11] MEDS: SODIUM CHLORIDE 0.9% IV 1,000 ML 125 ML IV CONT (02:30)
[2024-01-11 05:23] VITALS: BP 116/65; PULSE 66; RESP 18; TEMP 36.4; O2SAT 100
[2024-01-11 07:23] LABS: Basophils Absolute Auto 0.2 K/mm3 (0.0-0.1); Basophils Percent Auto 1.2 % (0.2-1.2); Eosinophils Absolute Auto 0.6 K/mm3 (0-0.3); Hematocrit 42.3 % (42.0-52.0); Hemoglobin 14.6 g/dL (14.0-18.0); Immature Granulocyte Absolute 1.02 K/mm3 (0.00-0.031); Immature Granulocyte Percent A 7.3 % (0-0.5); Lymphocytes Absolute Auto 2.39 K/mm3 (0.9-3.2); Lymphocytes Percent Auto 17.2 % (18.3-44.2); Mean Corpuscular HGB Conc 34.5 g/dl (32-36); Mean Corpuscular Hemoglobin 31.1 pg (26-34); Mean Corpuscular Volume 90.2 fl (80-100); Mean Platelet Volume 9.1 fl (7.4-10.4); Monocytes Absolute Auto 0.7 K/mm3 (0.1-0.6); Monocytes Percent Auto 4.8 % (2.6-8.5); Neutrophils Absolute Auto 9.1 K/mm3 (1.3-6.7); Neutrophils Percent Auto 65.5 % (45.5-73.1); Platelet Count Result 399 k/mm3 (150-375); Red Blood Count 4.69 M/mm3 (4.6-6.20); Red Cell Distribution Width 13.3 % (11.5-14.5); White Blood Count 13.9 K/mm3 (4.5-10.0)
[2024-01-11 07:32] LABS: Alanine Aminotransferase 64 U/L (6-50); Albumin Level 3.4 g/dL (3.5-5.1); Alkaline Phosphatase 110 U/L (38-126); Anion Gap 4 mmol/L (4-12); Aspartate Amino Transferase 39 U/L (17-59); Bilirubin,Total 0.4 mg/dL (0.2-1.3); Blood Urea Nitrogen 13 mg/dL (9-20); Calcium 9.1 mg/dL (8.4-10.2); Carbon Dioxide 34 mmol/L (22-30); Chloride 99 mmol/L (98-107); Estimated CRCL calculation 149 ml/min; Estimated Glomerular Filt Rate > 60; Glucose 100 mg/dL (65-110); Potassium 4.4 mmol/L (3.4-5.0); Sodium 137 mmol/L (137-145)
[2024-01-11] MEDS: ENOXAPARIN 40 MG/0.4 ML SYRINGE SUB-Q (08:19)
[2024-01-11] MEDS: SENNA/DOCUSATE SODIUM TABLET 1 TAB PO (08:19)
[2024-01-11] MEDS: CHLORHEXIDINE GLUCONATE 4% SOL 120 ML BTL 1 APPLIC TOPICAL (08:19)
[2024-01-11] MEDS: VANCOMYCIN 1,500 MG/NS 500 ML 1,500 MG/500 ML BAG 250 MG IVPB (08:20)
[2024-01-11] MEDS: MICONAZOLE NITRATE 2% CREAM 30 GM TUBE 1 APPLIC TOPICAL (08:21)
[2024-01-11] MEDS: HYDROcodone/acetaminophen (*CRX) 5-325 MG TABLET 1 TAB PO (08:31)
[2024-01-11 08:56] LABS: Platelet Estimate Slightly Increased (Adequate)
[2024-01-11 08:57] LABS: Atypical Lymphocytes Present; Schistocytes None Seen
[2024-01-11] MEDS: cefTRIAXone 2 GM/NS 100 ML 2 GM/100 ML BAG IVPB (10:39)
[2024-01-11] MEDS: DOXYCYCLINE HYCLATE 100 MG TABLET PO (10:54)
[2024-01-11 13:51] VITALS: BP 112/64; PULSE 78; RESP 16; TEMP 35.6; O2SAT 100
--- NOTE | 2024-01-11 17:14 | PM.DS ---
DS: Admitting Diagnosis Discharge Date 01/11/24 Admitting Diagnosis cellulitis rash weight loss decreased mobility polysubstance abuse DS: Discharge Diagnosis Discharge Diagnosis (1) Cellulitis: Qualifiers: Laterality: right Site of cellulitis: extremity Site of cellulitis of extremity: lower extremity Qualified Code(s): L03.115 - Cellulitis of right lower limb Code(s): L03.90 - Cellulitis, unspecified Status: Acute (2) Rash: Code(s): R21 - Rash and other nonspecific skin eruption Status: Acute (3) Weight loss: Code(s): R63.4 - Abnormal weight loss Status: Acute (4) Decreased mobility: Code(s): R26.89 - Other abnormalities of gait and mobility Status: Acute (5) Polysubstance abuse: Code(s): F19.10 - Other psychoactive substance abuse, uncomplicated Status: Acute DS: Summary Hospital Course Reason for hospitalization: cellulitis rash weight loss decreased mobility polysubstance abuse Hospital Course: 43 year old man, hx obesity with 150 pound weight loss in the last 2 years, chronic lymphedema to left leg, 10 years of methamphetamine use, who presented to the ED for wounds. Denies injecting. Admitted for right leg cellulitis. Also has lesions to his left arm and leg, lesions itchy, reports present since about 12/25. On admission patient had a leukocytosis and was started on IV antibiotics for cellulitis. An x-ray of his tibia fibula showed diffuse soft tissue edema that could reflect cellulitis but no soft tissue gas evident and no osseous or articular abnormality. A tibia-fibula CT showed widespread subcutaneous edema without abscess or osteomyelitis. Patient also had a left leg rash that was circular, raised, crusted that he reported had been previously draining. Patient was given topical miconazole and chlorhexidine soaps. At time of discharge he was given mupirocin for possible impetigo. An echo was obtained which showed aortic valve thickening but could not rule out endocarditis. Despite this blood cultures continue to be no growth today. At time of discharge discussed antibiotics with ID pharmacy and patient will be discharged on doxycycline and Augmentin to complete course of antibiotics for his cellulitis. Patient also reported a 150 lb weight loss in the past 2 years. RPR and HIV were negative. Weight loss could be secondary to methamphetamine use. Encouraged amphetamine cessation and resources were given by care coordination. Prior discharge patient had no complaints. He stated that his swelling and much improved and he was not able to ambulate around his room without assistance. He also denied chest pain, shortness a breath, nausea/vomiting, and abdominal pain. Patient discharged home in stable condition. He is continue with antibiotics as prescribed and follow-up with his primary care provider in 1 week Status at Discharge Functional status at discharge: independent ambulation Time Spent with Patient Time attestation: Total time spent providing and/or coordinating discharge services: Time spent: Greater than 30 minutes Exam Narrative: AF HR 78 RR 16 SPO2 100 BP 112/64 General: male in no acute respiratory distress who is nontoxic appearing, lying semi recumbent in bed. HEENT: Normocephalic. Atraumatic. Extraocular movement intact. Sclera clear and anicteric.No facial asymmetry. Chest: Lungs are clear to auscultation bilaterally. No wheezes or crackles. CV: Heart was regular rate and rhythm. S1/S2. No murmurs, gallops, or rubs. Abd: Abdomen was soft. Nontender. Nondistended. Positive bowel sounds. Ext: No clubbing, cyanosis. 2+ DP pulses bilaterally. Improving redness and mild edema to the right lower extremity extending to the mid grant. Round lesions to the left upper thigh, without drainage. DS: Data Data Completed and Pending Completed studies during hospitalization: tibia/fibula x-ray tibia/fibula CT L
== END 2024-01-11 15:00 | disposition home or self-care (01) | DRG 383 ==
LOC: ANHED 01-07 03:59 → ANH3MEDSUR 01-07 06:01
PROVIDERS: Nurse Practitioner Acute Care; Admitting Provider Internal Medicine; Emergency Provider Physician Assistant; Visit Provider Student in an Organized Health Care Education/Training Program
DX: L03.115 Cellulitis of right lower limb (principal); L01.00 Impetigo, unspecified; I89.0 Lymphedema, not elsewhere classified; F15.90 Other stimulant use, unspecified, uncomplicated; F17.210 Nicotine dependence, cigarettes, uncomplicated
CPT/HCPCS: 36415; 73590; 73701; 80048; 80053; 80202; 80307; 81003; 82565; 83605; 83735; 84100; 85025; 85652; 86140; 86592; 86703; 87040; 87491; 87591; 87641; 93306; 96365; 96366; 96372; 96375; 96376; 97161; 99285; A9270; G0378; G0379; G0432; J0692; J0696; J1650; J2270; J2405; J3370; J7030; Q9967